=== PATIENT | female | born 1985 ===

== ENCOUNTER 2023-12-03 03:57 | Day surgery (SDC) | payer OTHER ==
[~2023-12-03 03:57] MED LIST: ALBU90OI INH; AMOCLA875 PO; AMOX500 PO; CEPH500 PO; CIPR500; CODGUAEL PO; DOXY100 PO; HYDACE5; HYDACE5 PO; HYDGUAL120 PO; MUCINEX OTC; OXYACE5T PO; PHENA200; PRED20 PO; PROACE100 PO; PROM25 PO; RXPROACE PO; Sod Ferric Gluc Complx/Sucrose 125 MG in NS 100 ML IV SCH
[2023-12-03 08:55] VITALS: BP 120/80
== END 2023-12-03 10:00 | disposition home or self-care (01) ==
LOC: ATC 03:57
DX: E61.1 Iron deficiency (principal); Z79.899 Other long term (current) drug therapy
CPT/HCPCS: 96365; J2916

== ENCOUNTER 2023-12-24 00:37 | Day surgery (SDC) | payer OTHER ==
[~2023-12-24 00:37] MED LIST changes: +DIAZ5 PO; +FERREX 150150 M1 PO; -Sod Ferric Gluc Complx/Sucrose 125 MG in NS 100 ML IV SCH
[2023-12-24] MEDS ORDERED: Sod Ferric Gluc Complx/Sucrose 125 MG in NS 100 ML IV SCH (01:00)
[2023-12-24 10:03] VITALS: BP 113/78
== END 2023-12-24 11:17 | disposition home or self-care (01) ==
LOC: ATC 00:37
DX: E61.1 Iron deficiency (principal); R80.9 Proteinuria, unspecified; G47.10 Hypersomnia, unspecified; R56.9 Unspecified convulsions; F39 Unspecified mood [affective] disorder
CPT/HCPCS: 96365; J2916

== ENCOUNTER 2024-01-14 02:08 | Day surgery (SDC) | payer OTHER ==
[~2024-01-14 02:08] MED LIST changes: +Sod Ferric Gluc Complx/Sucrose 125 MG in NS 100 ML IV SCH
[2024-01-14 10:26] VITALS: BP 119/87
== END 2024-01-14 11:26 | disposition home or self-care (01) ==
LOC: ATC 02:08
DX: E61.1 Iron deficiency (principal); G47.10 Hypersomnia, unspecified; F39 Unspecified mood [affective] disorder; R56.9 Unspecified convulsions; F17.210 Nicotine dependence, cigarettes, uncomplicated; Z79.899 Other long term (current) drug therapy
CPT/HCPCS: 96365; J2916